=== PATIENT | female | born 1985 | race Caucasian/White ===

== ENCOUNTER 2020-05-10 04:27 | Day surgery (SDC) | payer OTHER, SELFPAY ==
[2020-04-29 15:09] VITALS: BMI 21.9
--- NOTE | 2020-05-10 10:50 | SUR.PREOP ---
09-MESSAGE LEFT FOR PT REGARDING SURGERY DELAY. 924-PT RETURNED CALL, INFORMED PER YOSEPH CHNU RN THAT SURGEON HAS DELAYED SELF AND WE WILL CALL HER WHEN SHE NEEDS TO REPORT TO THE HOSPITAL.
[2020-05-10] MEDS: LACTATED RINGERS 1,000 ML 30 ML IV CONT ×2 (14:23→16:45)
[2020-05-10 14:27] VITALS: BP 129/77; PULSE 66; RESP 16; TEMP 36.6; O2SAT 100
--- NOTE | 2020-05-10 14:33 | WPDANESEPPF ---
Anes - Initial Pre Proc Eval Procedure: Operation Date: 05/10/20 14:00 Proposed Procedures p Bilateral Augmentation Mammoplasty - Jayjay Lewis MD Date/Time: 05/10/20 14:33 Surgeon: Jayjay Lewis MD Pre Op Diagnosis: Micromastia Patient Data Age: 34 Gender: F Height: 1.63 m Weight: 56 kg Last Vital Signs Temp 36.6 C 05/10/20 14:27 Pulse 66 05/10/20 14:27 Resp 16 05/10/20 14:27 BP 129/77 05/10/20 14:27 Pulse Ox 100 05/10/20 14:27 Allergies Allergy/AdvReac Type Severity Reaction Status Date / Time amoxicillin Allergy Intermediate Hives Verified 05/10/20 13:37 Sulfa (Sulfonamide Allergy Intermediate low blood Verified 05/10/20 13:37 Antibiotics) sugar Home Medications Medication Instructions Recorded Confirmed Type citalopram 20 mg tablet 20 mg PO DAILY 03/25/20 04/29/20 History clonazepam 0.5 mg tablet 0.5 mg PO DAILY 03/25/20 04/29/20 History levocetirizine 5 mg tablet 5 mg PO DAILY 03/25/20 04/29/20 History docusate sodium 100 mg capsule 100 mg PO DAILY #14 cap 04/24/20 04/29/20 Rx carisoprodol 350 mg tablet 350 mg PO TID PRN #21 tablet 04/28/20 05/10/20 Rx oxycodone-acetaminophen 5 mg-325 1 tablet PO Q6H PRN #15 tablet 04/28/20 04/29/20 Rx mg tablet ascorbic acid (vitamin C) 500 mg PO DAILY 04/29/20 05/10/20 History ferrous sulfate [Iron (ferrous mg 04/29/20 History sulfate)] norethindrone ac-eth estradiol tablet 04/29/20 History [Microgestin 1.5/30 (21)] Patient hx anesthesia problems: none Family hx anesthesia problems: none PMFSH Past Medical History Medical History (Updated 05/10/20 @ 14:34 by Alistair Brody DO) Anemia Anxiety Depression PTSD (post-traumatic stress disorder) Social History Social History Smoking status: Never smoker Alcohol intake: current Drinks per week: 3 Substance use: never Living arrangements: with family Gender identity (if verbalized by the patient): Female Sexual Orientation (if Verbalized by the Patient): Straight or Heterosexual Spiritual care concerns: No Anes - Eval Final PreProcedure Day of Procedure 05/10/20 14:33 Patient weight: normal Heart: regular rate and rhythm Lungs: clear to auscultation and normal air movement Airway: Mallampati scale class II Neurological: alert and oriented Last oral intake: >/= 8 hours ASA classification: II Emergent: no Anesthetic plan: proceed Anesthesia type and monitoring: general LMA and standard monitoring Informed Consent: The patient's anesthetic plan and its attendant risks and benefits were discussed with the patient/family/POA. Questions were solicited and answers provided to the satisfaction of the patient/family/POA.
[2020-05-10] MEDS: SCOPOLAMINE 1.5 MG PATCH TRANSDERM (14:45)
--- NOTE | 2020-05-10 15:02 | SUR.PREOP ---
Discussed continued delay till probably 4pm. Patient is notifying her of this.
--- NOTE | 2020-05-10 15:07 | WPDHPUPDATE1 ---
History and Physical Update Update Date/Time: 05/10/20 15:07 History and Physical has been reviewed, including an updated exam of the patient. There are NO changes in the patient's condition. Risks, benefits, and alternatives have been discussed and questions answered. Patient agrees to proceed with procedure.
--- NOTE | 2020-05-10 15:27 | PM.PROC ---
Procedure Note - Detailed Date of procedure: 05/10/20 Pre-op diagnosis: Micromastia Post-op diagnosis: same Procedure performed: Bilateral Augmentation Mammaplasty Description of procedure: She is here today for bilateral breast augmentation. Previously and again today the risks, benefits, alternatives were discussed in extensive detail. I wanted her to be very realistic about the risks involved as well as expectations. We discussed aftercare and what to monitor for. Made sure answered all of her questions to her satisfaction today and consent was obtained. Marked in the preoperative holding area with their verification. The patient was taken to the operating room placed supine on the operating table. Anesthesia was provided by anesthesiology. A surgical time-out was taken. We cleansed the skin and 1% lidocaine and 0.25% Marcaine with epinephrine was used anesthetize as a field block. She was prepped and draped in a standard sterile fashion. Tegaderm nipple Escamilla were placed. A 15 blade used to make an incision along the inframammary fold. Dissection was continued at 45 degree angle until the chest wall as identified. I incised the pectoralis major along its inferior border and completely released the inferior border leaving the medial border intact. I created a subpectoral pocket in the appropriate dimensions based on our preoperative planning for the implant. I then copiously irrigated with saline solution and verified a strict hemostasis. Next the use a triple antibiotic and Betadine containing solution to irrigate the pocket. I washed my gloves with the triple antibiotic and Betadine solution. We washed the implant immediately upon opening it with this solution and only opened it when we needed it. I used implant funnel and no-touch technique. The implant was introduced into the pocket using the funnel. Having verified positioning of the implant this was closed using 2-0 Vicryl followed by 3-0 Monocryl in a running subcuticular 4-0 Monocryl followed by tissue glue. Fluffs, Andres wrap, and surgical bra were placed. Patient was awoke and taken to PACU without difficulty. All instrument sponge counts were correct at the end of the case. Anesthesia: GLMA Surgeon: Jayjay Lewis MD Estimated blood loss (mL): 20 Drains: No Packing: No Pathology: none sent Complications: No immediate complications Condition: stable Disposition: PACU Findings: Bilateral dual plane 1 Shorty Mcnealira SoftTouch 360cc Right REF# [id number] Left REF# [id number] SN [id number]
[2020-05-10] MEDS: CLINDAMYCIN 900 MG/D5W 50 ML 900 MG/50 ML PIGGYBACK 50 MG IVPB (15:46)
[2020-05-10] MEDS: LIDO 1%/EPINEPHRINE 1:100,000 20 ML VIAL 60 ML INFILTRATE (16:14)
[2020-05-10 16:45] VITALS: BP 144/79; PULSE 92; RESP 18; O2SAT 100
[2020-05-10] MEDS: fentaNYL CITRATE INJ (*CRX) 100 MCG/2 ML VIAL 25 MCG IV PUSH ×2 (16:51→17:04)
[2020-05-10 17:15] VITALS: BP 137/77; PULSE 86; RESP 16; O2SAT 100
[2020-05-10] MEDS: oxyCODONE HCL (*CRX) 5 MG TAB IR PO (17:26)
[2020-05-10 17:44] VITALS: BP 148/86; PULSE 76; RESP 16
== END 2020-05-10 17:55 | disposition home or self-care (01) ==
PROVIDERS: PCP Family Medicine; Visit Provider Surgery Plastic and Reconstructive Surgery
PROC: (CPT 19325; principal; 2020-05-10 14:00)
DX: Z41.1 Encounter for cosmetic surgery (principal); N64.82 Hypoplasia of breast; D64.9 Anemia, unspecified; F41.8 Other specified anxiety disorders; F43.10 Post-traumatic stress disorder, unspecified
CPT/HCPCS: 19325; 87635; A9270; C9803; J1100; J1580; J2250; J2405; J2704; J3010; J7120; U0003